=== PATIENT | male | born 1980 | race African-American/Black ===

== ENCOUNTER 2024-02-13 10:10 | Emergency (ER) | payer MEDICAID ==
[~2024-02-13] VITALS: Ht 182.9 cm; Wt 117.9 kg
[2024-02-13 10:23] VITALS: TEMP 98.6; O2SAT 97
[2024-02-13 10:54] LABS: BASOPHILS % 1.1 % (0.0-2.0); EOSINOPHILS % 9.7 % (0.0-5.0); HEMATOCRIT. 44.7 % (42.0-52.0); HEMOGLOBIN. 15.1 g/dL (14.0-18.0); MEAN CORPUSCULAR HEMOGLOBIN 30.1 pg (28.0-32.0); MEAN CORPUSCULAR HGB CONC 33.8 g/dL (31.0-37.0); MEAN CORPUSCULAR VOLUME 89.2 fL (80.0-94.0); MEAN PLATELET VOLUME 7.9 fl (7.4-10.4); MONOCYTES % 12.6 % (2.0-8.0); NEUTROPHILS % 46.6 % (40.0-76.0); PLATELET 352 x1000/uL (130-400); RED BLOOD CELL COUNT 5.01 mill/uL (4.7-6.1); RED CELL DISTRIBUTION WIDTH 13.6 % (11.6-14.6); WHITE BLOOD COUNT 5.1 x1000/uL (4.5-11.0)
[2024-02-13 11:08] LABS: ALANINE AMINOTRANSFERASE 26 IU/L (10-49); ALBUMIN 4.5 g/dL (3.2-4.8); ASPARTATE AMINOTRANSFERASE 19 IU/L (<34); BILIRUBIN TOTAL 0.6 mg/dL (0.1-1.0); CALCIUM 8.9 mg/dL (8.7-10.4); CARBON DIOXIDE 28 mEq/L (21-32); CHLORIDE 104 mEq/L (98-107); CREATININE 1.1 mg/dL (0.6-1.3); GLUCOSE 103 mg/dL (70-105); POTASSIUM 4.6 mEq/L (3.5-5.1); PROTEIN TOTAL 7.5 g/dL (6.0-8.3); SODIUM 135 mEq/L (136-145); TROPONIN I HIGH SENSITIVITY 49 ng/L (3.0-53); UREA NITROGEN BLOOD 10 mg/dL (9-23)
[2024-02-13 12:25] LABS: TROPONIN I HIGH SENSITIVITY 47 ng/L (3.0-53)
[2024-02-13] MEDS ORDERED: TOPUD MT (12:36)
[2024-02-13] MEDS ORDERED: HYDR12.54 MT (12:38)
[2024-02-13] MEDS ORDERED: LISI20TA31 MT (12:38)
[2024-02-13 13:14] VITALS: BP 149/86; PULSE 70; RESP 18
== END 2024-02-13 13:15 | disposition home or self-care (01) ==
LOC: ER 11:28
DX: R07.9 Chest pain, unspecified (principal); I10 Essential (primary) hypertension
CPT/HCPCS: 36415; 71045; 80053; 83880; 84484; 85025; 93005; 99285